=== PATIENT | female | born 1990 | race American Indian/Alaskan Native ===

== ENCOUNTER 2018-10-18 07:12 | Emergency (ER) | payer OTHER ==
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
--- NOTE | 2018-10-18 10:16 | XRay Report ---
CERVICAL SPINE 3 VIEWS INDICATION / CLINICAL INFORMATION: Neck pain. COMPARISON: None available. FINDINGS: BONES / JOINT(S): The vertebral body heights and disc spaces are well-maintained. No significant arth ritis. There is no evidence of fracture, subluxation or destructive lesion. SOFT TISSUES: The prevertebral soft tissues are normal. ADDITIONAL FINDINGS: The visualized lung apices are clear. IMPRESSION: Negative study. Signer Name: Zak Evans MD Signed: 10/18/2018 10:11 AM Workstation Name: [id number]
--- NOTE | 2018-10-18 10:17 | XRay Report ---
LUMBOSACRAL SPINE 3 VIEWS INDICATION / CLINICAL INFORMATION: Low back pain. COMPARISON: None available. FINDINGS: BONES / JOINT(S): The vertebral body heights and disc spaces are well-maintained. The pedicles are in tact and the SI joints are normal. There is no evidence of fracture, subluxation or destructive lesio n. SOFT TISSUES: There are surgical changes in the left upper quadrant. ADDITIONAL FINDINGS: Umbilical jewelry is noted. IMPRESSION: Negative study. Signer Name: Zak Evans MD Signed: 10/18/2018 10:13 AM Workstation Name: [id number]
[2018-10-18 15:01] VITALS: BP 140/90
== END 2018-10-18 14:59 | disposition home or self-care (01) ==
LOC: ED 07:12
DX: S16.1XXA Strain of muscle, fascia and tendon at neck level, initial encounter (principal); M54.5 Low back pain; Z79.1 Long term (current) use of non-steroidal anti-inflammatories (NSAID); V89.2XXA Person injured in unspecified motor-vehicle accident, traffic, initial encounter; Y93.89 Activity, other specified; Y92.488 Other paved roadways as the place of occurrence of the external cause; Y99.8 Other external cause status
CPT/HCPCS: 72040; 72100; 99283